=== PATIENT | female | born 1935 | race Caucasian/White ===

== ENCOUNTER → 2016-09-03 | Outpatient (CLI) | payer MEDICARE, OTHER ==
[~2016-09-03] MED LIST: ALPRAZOLAM0.25 MG PO; ATIVAN0.5 MG PO; CALCIUM 1200 W/1 SGL PO; ENALAPRIL MALEA10 MG PO; LEVOTHROID SO0.15 MG PO; METOPROLOL SUCC50 MG PO; NORCO 325 MG-51 TAB PO; PHENERGAN 25 TA25 MG PO; PHENERGAN25 MG RC; PROBIOTICA100 Milli1
== END ==
LOC: COL.VAS 09:38
DX: I82.512 Chronic embolism and thrombosis of left femoral vein (principal); R60.0 Localized edema

== ENCOUNTER → 2017-08-26 | Outpatient (CLI) | payer MEDICARE, OTHER | LOC: COL.VAS 12:19 | DX: I35.0 Nonrheumatic aortic (valve) stenosis (principal); I10 Essential (primary) hypertension ==

== ENCOUNTER → 2018-10-16 | Outpatient (CLI) | payer MEDICARE, OTHER ==
[2018-10-17 11:24] LABS: CREATININE, serum 0.95 mg/dL (0.52-1.25)
[2018-10-17 11:25] LABS: POTASSIUM 4.5 mmol/L (3.4-5.0)
== END ==
LOC: COL.VAS 10:00
PROVIDERS: Family Medicine
DX: Z00.00 Encounter for general adult medical examination without abnormal findings (principal); I70.0 Atherosclerosis of aorta; I70.1 Atherosclerosis of renal artery; I10 Essential (primary) hypertension; E27.8 Other specified disorders of adrenal gland; Z90.49 Acquired absence of other specified parts of digestive tract
CPT/HCPCS: Q9967

== ENCOUNTER → 2022-03-18 | Outpatient (CLI) | payer MEDICARE, OTHER ==
[2022-03-18 15:17] LABS: COLLECTION METHOD CLEAN CATCH
[2022-03-18 15:19] LABS: ALBUMIN 4.2 gm/dL (3.4-4.8); BILIRUBIN,TOTAL 0.8 mg/dL (0.2-1.2); CALCIUM 10.4 mg/dL (8.4-10.2); CHOLESTEROL RISK RATIO 4.2; CREATININE, serum 1.14 mg/dL (0.57-1.11); MUCOUS Present (NOT PRESENT); PH 6 (5-8); POTASSIUM 4.4 mmol/L (3.5-4.5); THYROID STIMULATING HORMONE 1.329 uIU/mL (0.350-4.940); TOTAL PROTEIN 7.1 gm/dL (6.2-8.1); URINE APPEARANCE Hazy (CLEAR/HAZY); URINE BACTERIA None Seen /hpf (NONE SEEN); URINE BLOOD Negative (NEGATIVE); URINE COLOR Yellow (YELLOW); URINE GLUCOSE Negative (NEGATIVE); URINE KETONE Negative (NEGATIVE); URINE NITRATE Negative (NEGATIVE); URINE PROTEIN(semi-quant) Negative (NEGATIVE); URINE UROBILINOGEN Negative (NEGATIVE); URINE WBC 20-50 /hpf (0-2)
[2022-03-18 15:23] LABS: BASO # 0.1 K/mm3 (0.0-0.2); EOS # 0.2 K/mm3 (0.0-0.7); EOS % 3.2 % (0.0-4.0); GRAN # 4.3 K/mm3 (1.4-6.5); GRAN % 60.2 % (42.2-75.2); HEMATOCRIT 41.3 % (37.0-47.0); HEMOGLOBIN 13.8 g/dl (12.5-16.0); LYMPH # 2.1 K/mm3 (1.2-3.4); MEAN CELL VOLUME 90 fl (80.0-100.0); MEAN CORPUSCULAR HEMOGLOBIN 30 pg (27-31); MEAN CORPUSCULAR HGB CONC 33 g/dl (33.0-37.0); MEAN PLATELET VOLUME 9.6 fl (7.4-10.4); MONO # 0.5 K/mm3 (0.1-0.6); MONO % 6.3 % (1.7-9.3); PLATELET COUNT 245 K/mm3 (130-400); RED BLOOD COUNT 4.57 M/mm3 (4.10-5.30); REDCELL DISTRIBUTION WIDTH-CV 13.4 % (11.5-14.5)
== END ==
LOC: ZLAB.STJ 14:53
PROVIDERS: Family Medicine
DX: M81.0 Age-related osteoporosis without current pathological fracture (principal); E03.9 Hypothyroidism, unspecified; I10 Essential (primary) hypertension; Z79.01 Long term (current) use of anticoagulants; Z79.899 Other long term (current) drug therapy

== ENCOUNTER → 2023-09-25 | Outpatient (CLI) | payer MEDICARE, OTHER ==
[~2023-09-25] MED LIST changes: +ATIVAN 0.50.5 MG/TAB PO; +CALCIUM WITH D31 CTB PO; +CATAPRES 0.1MG0.1 MG PO; +CELEXA10 MG PO; +COLACE 100100 MG/CAP PO; +COREG 25MG25 MG/TAB PO; +COUMADIN4 MG PO; +COZAAR100 MG PO; +FOSAMAX 70MG TA70 MG PO; +MIRALAX PA17 GM/Dose PO; +NORVASC 5MG5 MG/TAB PO; +PEPCID40 MG PO; +PROTONIX 40MG T40 MG PO; +SYNTHROID0.112 MG/T PO; +Triamcinolone 40 MG/ML 1 ML VIAL IJ SCH; +ULTRAM 50MG TAB50 MG PO; +VITAMIN D31000 I1 PO; +ZOFRAN ODT4 MG PO
--- NOTE | 2023-09-25 12:19 | NUR ---
PT IS UNABLE TO STATES WHAT SHE IS TAKING OR WHAT SHE TOOK THIS AM.
[2023-09-25 12:24] VITALS: BP 149/81; PULSE 83; TEMP 98.1
[2023-09-25 14:00] VITALS: BP 169/90; PULSE 78
== END ==
LOC: COL.RAD 11:43
DX: M54.42 Lumbago with sciatica, left side (principal)
CPT/HCPCS: J0665; J3301

== ENCOUNTER → 2024-04-09 | Outpatient (CLI) | payer MEDICARE ==
[~2024-04-09] MED LIST changes: -Triamcinolone 40 MG/ML 1 ML VIAL IJ SCH
== END ==
LOC: COL.VAS 09:38
DX: I08.0 Rheumatic disorders of both mitral and aortic valves (principal)